=== PATIENT | male | born 1970 | race Caucasian/White ===

== ENCOUNTER 2018-10-05 05:39 | Day surgery (SDC) | payer OTHER ==
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
[2018-10-05] MEDS ORDERED: LR 1,000 ML IV ONE (06:23)
[2018-10-05] MEDS ORDERED: CEFAZOLIN 2 GM/DEXTROSE/100 ML BAG IV ONE (06:42)
[2018-10-05] MEDS ORDERED: ceFAZolin 2 GM/DEXTROSE 100 ML IV ONE (06:50)
--- NOTE | 2018-10-05 06:50 | PDHPUP ---
History & Physical Update H&P update statement: This history and physical update is based on an assessment of the patient which was completed after admission or registration (within 24 hours), but prior to the surgery/procedure. H&P update: H&P reviewed & patient examined
[2018-10-05] MEDS ORDERED: MIDAZOLAM 2 MG/2 ML VIAL IVP ONE (07:07)
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
[2018-10-05] MEDS ORDERED: ONDANSETRON 4 MG/2 ML VIAL ONE (07:10)
[2018-10-05] MEDS ORDERED: PROPOFOL/EMULSION 500 MG/50 ML BOTTLE IV ONE ×3 (07:10→07:48)
[2018-10-05] MEDS ORDERED: DEXAMETHASONE 4 MG/ML VIAL ONE (07:10)
[2018-10-05] MEDS ORDERED: fentaNYL 100 MCG/2 ML INJ ONE ×4 (07:10→09:33)
[2018-10-05] MEDS ORDERED: LIDOCAINE 2% 100 MG/5 ML SYR ONE (07:10)
[2018-10-05] MEDS ORDERED: PROPOFOL 200 MG/20 ML VIAL ONE (07:11)
[2018-10-05] MEDS ORDERED: BUPIVACAINE 0.5% 30 ML SDV ONE (07:15)
[2018-10-05] MEDS ORDERED: LIDOCAINE 1% 300 MG/30 ML SDV ONE ×2 (07:15→07:16)
[2018-10-05] MEDS ORDERED: NALOXONE HCL 0.4 MG/ML INJ IVP PRN (08:37)
[2018-10-05] MEDS ORDERED: ONDANSETRON 4 MG/2 ML VIAL IVP PRN (08:37)
[2018-10-05] MEDS ORDERED: ACETAMINOPHEN 500 MG TAB PO PRN (08:37)
[2018-10-05] MEDS ORDERED: MEPERIDINE 25 MG/0.5 ML AMP IVP PRN (08:37)
[2018-10-05] MEDS ORDERED: LR 500 ML IV PRN (08:37)
[2018-10-05] MEDS ORDERED: LABETALOL HCL 5 MG/ML 20 ML MDV ONE (08:59)
--- NOTE | 2018-10-05 08:59 | POSTANESTH ---
Post Anesthetic Evaluation Cardiovascular Status: Normal, Stable Respiratory Status: Normal, Stable Level of Consciousness/Mental Status: Can Participate in Eval, Mildly Sleepy, Arousable Pain Control: Adequate, Prn Tx Ordered Nausea/Vomiting Control: Adequate, Prn Tx Ordered Complications Possibly Related to Anesthesia: None Noted
[2018-10-05] MEDS: LABETALOL HCL 5 MG/ML 20 ML MDV IVP PRN ×3 (09:01→09:26)
[2018-10-05] MEDS: fentaNYL 100 MCG/2 ML INJ IVP PRN ×4 (09:04→09:57)
[2018-10-05] MEDS ORDERED: HYDROmorphONE/DILAUDID 2 MG/ML INJ ONE (09:23)
[2018-10-05] MEDS: HYDROmorphONE/DILAUDID 2 MG/ML INJ IVP PRN ×3 (09:24→10:20)
[2018-10-05] MEDS ORDERED: hydrALAZINE 20 MG/ML VIAL ONE ×2 (09:54→10:11)
[2018-10-05] MEDS: hydrALAZINE 20 MG/ML VIAL IVP PRN ×2 (09:58→10:13)
[2018-10-05] MEDS: oxyCODONE IR 5 MG TAB PO PRN ×2 (10:22→11:20)
[2018-10-05] MEDS ORDERED: oxyCODONE IR 5 MG TAB ONE ×2 (10:22→11:18)
[2018-10-05 13:15] VITALS: BP 134/70
--- NOTE | 2018-10-06 21:36 | GOP ---
[f rep st] OPERATIVE REPORT DATE OF OPERATION: 10/05/2018 SURGEON: Steve Mukherjee MD BALL POINT SPLITTER: Nargis Wright PA-C. PREOPERATIVE DIAGNOSIS: Right distal radius fracture. POSTOPERATIVE DIAGNOSIS: Right distal radius fracture. PROCEDURE PERFORMED: Right distal radius open reduction and internal fixation. FINDINGS: ESTIMATED BLOOD LOSS: 1 cc. DESCRIPTION OF PROCEDURE: This is a very pleasant 48-year-old male who underwent a right distal radi us open reduction and internal fixation. COMPLICATIONS: None. IMPLANTS: Synthes 2.4 mm x 2.7 mm locking distal radius plate, 3-hole shaft wide, with a combination of 2.4 mm locking and nonlocking screws and 2.7 mm nonlocking screws. TOURNIQUET TIME: 61 minutes at 250 mmHg. /[id number]/MODL
== END 2018-10-05 12:50 | disposition home or self-care (01) ==
LOC: FSGY 05:39
PROVIDERS: ATTEND Orthopaedic Surgery Hand Surgery
PROC: 0PSJ04Z Reposition Left Radius with Internal Fixation Device, Open Approach (ICD-10-PCS; principal; 2018-10-05 07:14)
DX: S52.572A Other intraarticular fracture of lower end of left radius, initial encounter for closed fracture (principal); V86.56XA Driver of dirt bike or motor/cross bike injured in nontraffic accident, initial encounter; Y92.838 Other recreation area as the place of occurrence of the external cause; E78.5 Hyperlipidemia, unspecified; I10 Essential (primary) hypertension; K21.9 Gastro-esophageal reflux disease without esophagitis
CPT/HCPCS: C1713; J0360; J0690; J1100; J1170; J2001; J2250; J2405; J2704; J3010